=== PATIENT | male | born 1990 | race Two or more races ===

== ENCOUNTER 2021-09-20 07:42 | Emergency (ER) | payer SELFPAY ==
[~2021-09-20] VITALS: Ht 175.3 cm; Wt 97.5 kg
[2021-09-20] MEDS ORDERED: SODIUM CHLORIDE 0.9% 1,000 ML IV ONE (08:00)
[2021-09-20] MEDS ORDERED: KETOROLAC TROMETH 30 MG/ML 1ML VIAL IV ONE (08:15)
[2021-09-20 09:06] LABS: Basophils # (auto) 0 10 ^3/uL (0-0.2); Basophils % (auto) 0.3 % (0.0-2.0); Eosinophils # (auto) 0.2 10 ^3/uL (0-0.8); Eosinophils % (auto) 1.9 % (0.0-7.0); Hematocrit 43.8 % (41.0-53.0); Hemoglobin 14.9 g/dL (13.5-17.5); Lymphocytes # (auto) 1.5 10 ^3/uL (0.4-5.4); Lymphocytes % (auto) 16.2 % (10.0-50.0); Mean Corpuscular Hemoglobin 27.7 pg (28.0-32.0); Mean Corpuscular Volume 81.3 fL (80.0-100.0); Monocytes # (auto) 0.5 10 ^3/uL (0-1.3); Monocytes % (auto) 5.8 % (0.0-12.0); Neutrophils # (auto) 6.8 10 ^3/uL (1.6-8.6); Neutrophils % (auto) 75.8 % (37.0-80.0); Red Blood Cells 5.39 10^6/uL (4.5-5.90); Red Cell Distribution Width 12.8 % (11.8-14.3)
[2021-09-20 09:23] LABS: Albumin 3.9 g/dL (3.4-5.0); Calcium 8.3 mg/dL (8.5-10.1); Potassium 3.4 mmol/L (3.5-5.1)
[2021-09-20 09:28] LABS: BUN/Creatinine Ratio 14.3; Bilirubin, Total 0.8 mg/dL (0.2-1.0); Total Protein 7.4 g/dL (6.4-8.2)
[2021-09-20] MEDS ORDERED: FUROSEMIDE 20 MG/2 ML VIAL IV ONE (10:15)
[2021-09-20] MEDS ORDERED: TAMSULOSIN HYDROCHLORIDE 0.4 MG CAP PO ONE (10:15)
[2021-09-20 12:12] VITALS: BP 150/94
== END 2021-09-20 13:24 | disposition home or self-care (01) ==
LOC: ER 07:42
DX: N20.0 Calculus of kidney (principal)
CPT/HCPCS: 36415; 74176; 80053; 85025; 96361; 96374; 96375; 99284; J1885; J1940; J7030

== ENCOUNTER 2025-03-19 15:18 | Emergency (ER) | payer MEDICAID ==
[2025-03-19 15:22] VITALS: TEMP 99.1
[2025-03-19] MEDS ORDERED: DexAMETHasone SOD PHOS 10MG/1ML VIAL INJ IM ONE (15:30)
[2025-03-19] MEDS ORDERED: diphenhdrAMINE HCL 25 MG CAP PO ONE (15:30)
[2025-03-19] MEDS: DexAMETHasone SOD PHOS 10MG/1ML VIAL INJ IV ONE (15:41)
[2025-03-19] MEDS: diphenhdrAMINE HCL 50 MG/1 ML VL IV ONE (15:41)
[2025-03-19 15:45] VITALS: PULSE 82; RESP 21; O2SAT 99
--- NOTE | 2025-03-19 16:42 | ED.PDOC ---
History of Present Illness HPI Comments 34-year-old male presents to the ER with no prior medical history associated to the chief complaint of facial swelling. Patient reports waiting a pimple cream on his face 1 hour prior to arrival to the ER and had a rise of the left lower lid swelling. Denies chills, fever, N/V/D, SOB, CP. No other associated symptoms, modifiers, recent injuries or sick contacts present at this time. Patient has a history of anxiety and is anxious at time of evaluation. Chief Complaint: Allergic Reaction Time Seen by MD: 16:10 Primary Care Provider: UNKNOWN Reviewed Notes: Nurses Notes, Medications, Allergies Allergies: Coded Allergies: NO KNOWN ALLERGIES (Unverified , 09/20/21) Information Source: Patient Mode of Arrival: Ambulatory Severity: Moderate Timing: Minutes Duration: Since onset, Minutes Prehospital treatment: None Past Medical History PAST MEDICAL HISTORY: Denies Surgical History: Denies all surgeries Family History Family History: Reviewed,noncontributory to illness, Unknown Social History Smoker: Non-Smoker Alcohol: Denies ETOH Use Drugs: Denies Drug Use Lives In: Home Constitutional: reports: others (Facial swelling); denies: chills, diaphoresis, fatigue, fever, malaise, sweats, weakness EENTM: denies: blurred vision, double vision, ear bleeding, ear discharge, ear drainage, ear pain, ear ringing, eye pain, eye redness, hearing loss, mouth pain, mouth swelling, nasal discharge, nose bleeding, nose congestion, nose pain, photophobia, tearing, throat pain, throat swelling, voice changes, others Respiratory: denies: cough, hemoptysis, orthopnea, SOB at rest, shortness of breath, SOB with excertion, stridor, wheezing, others Cardiovascular: denies: chest pain, dizzy spells, diaphoresis, Dyspnea on exertion, edema, irregular heart beat, left arm pain, lightheadedness, palpitations, PND, syncope, others Gastrointestinal: denies: abdomen distended, abdominal pain, blood streaked bowels, constipated, diarrhea, dysphagia, difficulty swallowing, hematemesis, melena, nausea, poor appetite, poor fluid intake, rectal bleeding, rectal pain, vomiting, others Genitourinary: denies: burning, dysuria, flank pain, frequency, hematuria, incontinence, penile discharge, penile sore, pain, testicle pain, testicle swelling, urgency, others Neurological: denies: dizziness, fainting, headache, left sided numbness, left sided weakness, numbness, paresthesia, pre-existing deficit, right sided numbness, right sided weakness, seizure, speech problems, tingling, tremors, weakness, others Musculoskeletal: denies: back pain, gout, joint pain, joint swelling, muscle pain, muscle stiffness, neck pain, others Integumetry: denies: bruises, change in color, change in hair/nails, dryness, laceration, lesions, lumps, rash, wounds, others Allergic/Immunocompromised: denies: Difficulty Healing, Frequent Infections, Hives, Itching, others Hematologic/Lymphatic: denies: anemia, blood clots, easy bleeding, easy bruising, swollen glands, others Endocrine: denies: excessive hunger, excessive sweating, excessive thirst, excessive urination, flushing, intolerance to cold, intolerance to heat, unexplained weight gain, unexplained weight loss, others Psychiatric: denies: anxiety, bipolar disorder, depression, hopeless, panic disorder, schizophrenia, sleepless, suicidal, others All Other Systems: Reviewed and Negative Physical Exam General Appearance: Moderate Distress ([id number] distress due to swelling and anxiety related concerns.), Normal HEENT: Pharynx Normal, TMs Normal, Other (Patient reveals some left lower lid swelling extending over the bridge of the nose and very mild right lower lid swelling. No airway involvement. No angioedema noted. Oxygen saturation is 100%.) Neck: Full Range of Motion, Non-Tender, Normal, Normal Inspection Respiratory: Chest Non-Tender, Lungs Clear, No Accessory Muscle Use, No Respiratory Distress, Normal Breath Sounds Cardiovascular: No Edema, No JVD, No Murmur, No Gallop, Normal Peripheral Pulses, Regular Rate/Rhythm Breast Exam: Deferred Gastrointestinal: No Organomegaly, Non Tender, No Pulsatile Mass, Normal Bowel Sounds, Soft Genitalia: Deferred Pelvic: Deferred Rectal: Deferred Extremities: No calf tenderness, Normal capillary refill, Normal inspection, Normal range of motion, Non-tender, No pedal edema Musculoskeletal : Apperance: Normal Neurologic: Alert, No Motor Deficits, Normal Affect, Normal Mood, No Sensory Deficits Cerebellar Function: Normal Reflexes: Normal Skin: Dry, Normal Color, Warm Lymphatic: No Adenopathy Was a procedure done? Was a procedure done?: No Differential Dx Considerations may include: Contact dermatitis, allergic reactions, allergic reaction to medication X-Ray, Labs, Meds, VS Vital Signs Date Time Temp Pulse Resp B/P (MAP) Pulse Ox O2 Delivery O2 Flow Rate FiO2 03/19/25 18:00 70 17 134/99 (111) 97 03/19/25 15:45 82 21 168/108 (128) 99 03/19/25 15:45 82 21 99 Room Air* 0 21 03/19/25 15:22 16 99 Room Air* 0 21 03/19/25 15:22 99.1 97 16 166/106 (126) 99 99.1 Current Medications Medications (Trade) Dose Ordered Sig/Khari Route Start Time Stop Time Status Last Admin Diphenhydramine HCl (Benadryl Injection) 50 mg ONCE ONCE IV 03/19/25 15:45 03/19/25 15:46 DC 03/19/25 15:41 Dexamethasone Sodium Phosphate (Decadron Injection) 10 mg ONCE ONCE IV 03/19/25 15:45 03/19/25 15:46 DC 03/19/25 15:41 Lorazepam (Ativan Inj) 0.5 mg ONCE ONCE IV 03/19/25 16:30 03/19/25 16:31 DC 03/19/25 16:55 X-Ray, Labs, Meds, VS Comment Patient responded well to medication dispensed to the ED. advised patient to cease utilizing that medication moving forward and evaluate the components that medication for possible future concerns. Additionally, patient had some blood pressure issues while at the facility. Advised patient follow up with his primary care provider for discussions related to possible hypertensive concerns. Time of 1ST Reevaluation: 18:44 Reevaluation 1ST: Improved Consultation: PCP Patient Education/Counseling: Diagnosis, Treatment, Prognosis Family Education/Counseling: Diagnosis, Treatment, No Family Present Departure 1 Departure Time of Disposition: 18:45 Impression: Primary Impression: Allergic reaction caused by a drug Disposition: 01 HOME / SELF CARE / HOMELESS Condition: Stable Additional Instructions: Advise utilizing medication as needed. Patient should follow up with primary care provider for discussions related to possible blood pressure concerns. e-Prescriptions Diphenhydramine Hcl (Benadryl Allergy) 25 Mg Cap 1 CAP PO Q8HP PRN, #20 CAP 0 Refills Prov: SHWETA COTTO PAC 03/19/25 Discharged With: Self, Spouse Critical Care Note Critical Care Time?: No Stability Stability form required: No Heart Score Heart Score: Heart Score Response (Comments) Value History N/A 0 EKG N/A 0 Age N/A 0 Risk Factors N/A 0 Troponin N/A 0 Total 0 I personally scribed for SHWETA COTTO PAC ([email or web address]) on 03/19/25 at 16:42. Electronically submitted by Naif Fontenot (MODE). SHWETA COTTO PAC Mar 19, 2025 16:42
[2025-03-19] MEDS: LORazepam 2MG/ML-1ML VIAL IV ONE (16:55)
[2025-03-19 18:00] VITALS: BP 134/99; PULSE 70; RESP 17; O2SAT 97
[2025-03-19] MEDS ORDERED: DIPH25CA66 PO (18:46)
== END 2025-03-19 19:04 | disposition home or self-care (01) ==
LOC: ER 15:18
DX: R22.0 Localized swelling, mass and lump, head (principal); T50.995A Adverse effect of other drugs, medicaments and biological substances, initial encounter; Y92.89 Other specified places as the place of occurrence of the external cause
CPT/HCPCS: 96374; 96375; 99284; J1100; J1200; J2060

== ENCOUNTER 2025-05-16 22:11 | Inpatient (IN) | payer MEDICAID ==
[~2025-05-16] VITALS: Ht 177.8 cm; Wt 106.1 kg
[~2025-05-16 22:11] MED LIST: DIPH25CA66 PO
[2025-05-16] MEDS: methylPREDNISolone SOD SUCC 125 MG/2 ML VL IV ONE (22:32)
[2025-05-16] MEDS: FAMOTIDINE (10MG/ML) 2ML VL IV ONE (22:32)
[2025-05-16] MEDS: SODIUM CHLORIDE 0.9% 1,000 ML IV ONE (23:39)
[2025-05-17] VITALS (7 sets, daily range): BP systolic 131–146; BP diastolic 86–93; PULSE 61–84; RESP 16–18; TEMP 97.6–98; O2SAT 97–99
[2025-05-17] MEDS: diphenhdrAMINE HCL 50 MG/1 ML VL IV ONE (00:39)
--- NOTE | 2025-05-17 03:52 | ED.PDOC ---
HPI Allergic reaction HPI Comments Patient brought in by . Patient started having swelling around both eyes. Patient states he was cleaning a pool when he has the leaf blower and believes that some of the clothing dosed may have gotten into his eyes. Patient also states he did have some prior to cleaning the pool. States no prior allergy to shrimp. Says he has been dealing with allergic type reactions over the last week, he believes it was due to the pull chemicals. Patient denies any trouble reading, but states he does feel a tingling sensation in his throat and tongue. Patient unable to open his eyes due to swelling. Patient was given 50 mg of Benadryl 30 minutes prior to arrival. Chief Complaint: Allergic Reaction Time Seen by MD: 22:25 Primary Care Provider: UNKNOWN Reviewed Notes: Nurses Notes Allergies: Coded Allergies: NO KNOWN ALLERGIES (Unverified , 09/20/21) Home Meds Active Scripts Diphenhydramine Hcl (Benadryl Allergy) 25 Mg Cap, 1 CAP PO Q8HP PRN, #20 CAP 0 Refills Prov:SHWETA COTTO Min PAC 03/19/25 Information Source: Patient Mode of Arrival: Ambulatory Severity: Mild, Severe Past Medical History PAST MEDICAL HISTORY: Denies Surgical History: Denies all surgeries Family History Family History: Reviewed,noncontributory to illness, Unknown Social History Smoker: Non-Smoker Alcohol: Denies ETOH Use Drugs: Denies Drug Use Lives In: Home Constitutional: denies: chills, diaphoresis, fatigue, fever, malaise, sweats, weakness, others EENTM: reports: others (I swelling); denies: blurred vision, double vision, ear bleeding, ear discharge, ear drainage, ear pain, ear ringing, eye pain, eye redness, hearing loss, mouth pain, mouth swelling, nasal discharge, nose bleeding, nose congestion, nose pain, photophobia, tearing, throat pain, throat swelling, voice changes Respiratory: denies: cough, hemoptysis, orthopnea, SOB at rest, shortness of breath, SOB with excertion, stridor, wheezing, others Cardiovascular: denies: chest pain, dizzy spells, diaphoresis, Dyspnea on exertion, edema, irregular heart beat, left arm pain, lightheadedness, palpitations, PND, syncope, others Gastrointestinal: denies: abdomen distended, abdominal pain, blood streaked bowels, constipated, diarrhea, dysphagia, difficulty swallowing, hematemesis, melena, nausea, poor appetite, poor fluid intake, rectal bleeding, rectal pain, vomiting, others Genitourinary: denies: burning, dysuria, flank pain, frequency, hematuria, incontinence, penile discharge, penile sore, pain, testicle pain, testicle swelling, urgency, others Neurological: denies: dizziness, fainting, headache, left sided numbness, left sided weakness, numbness, paresthesia, pre-existing deficit, right sided numbness, right sided weakness, seizure, speech problems, tingling, tremors, weakness, others Musculoskeletal: denies: back pain, gout, joint pain, joint swelling, muscle pain, muscle stiffness, neck pain, others Integumetry: denies: bruises, change in color, change in hair/nails, dryness, laceration, lesions, lumps, rash, wounds, others Allergic/Immunocompromised: denies: Difficulty Healing, Frequent Infections, Hives, Itching, others Physical Exam General Appearance: Normal, Severe Distress HEENT: Normal ENT Inspection, Pharynx Normal, TMs Normal, Other (Angioedema to bilateral eyes) Neck: Full Range of Motion, Non-Tender, Normal, Normal Inspection Respiratory: Chest Non-Tender, Lungs Clear, No Accessory Muscle Use, No Respiratory Distress, Normal Breath Sounds Cardiovascular: No Edema, No JVD, No Murmur, No Gallop, Normal Peripheral Pulses, Regular Rate/Rhythm Breast Exam: Deferred Gastrointestinal: No Organomegaly, Non Tender, No Pulsatile Mass, Normal Bowel Sounds, Soft Genitalia: Deferred Pelvic: Deferred Rectal: Deferred Extremities: No calf tenderness, Normal capillary refill, Normal inspection, Normal range of motion, Non-tender, No pedal edema Musculoskeletal : Apperance: Normal Neurologic: Alert, section chief II-XII nml as Tested, No Motor Deficits, Normal Affect, Normal Mood, No Sensory Deficits Cerebellar Function: Normal Reflexes: Normal Skin: Dry, Normal Color, Warm Lymphatic: No Adenopathy Was a procedure done? Was a procedure done?: No Differential diagnosis (all) Differential Diagnosis: Anaphylaxis, Angioedema, Drug Reaction, Hypotension X-Ray, Labs, Meds, VS Vital Signs Date Time Temp Pulse Resp B/P (MAP) Pulse Ox O2 Delivery O2 Flow Rate FiO2 05/17/25 01:40 98.3 70 17 124/73 (90) 96 98.3 05/17/25 01:30 61 16 97 Room Air* 0 21 21 05/16/25 23:35 57 15 100/52 (68) 100 05/16/25 22:37 107 20 100 Room Air 05/16/25 22:23 98.5 107 20 170/92 100 98.5 Current Medications Medications (Trade) Dose Ordered Sig/Khari Route Start Time Stop Time Status Last Admin Epinephrine HCl 0.3 mg ONCE ONCE IM 05/16/25 22:30 05/16/25 22:31 DC 05/16/25 22:33 Methylprednisolone Sodium Succinate (Solu Medrol) 125 mg ONCE ONCE IV 05/16/25 22:30 05/16/25 22:31 DC 05/16/25 22:32 Famotidine (Pepcid Injection) 20 mg ONCE ONCE IV 05/16/25 22:30 05/16/25 22:31 DC 05/16/25 22:32 Sodium Chloride 1,000 ml @ 1,000 mls/hr Q1H ONCE IV 05/16/25 23:45 05/17/25 00:44 DC 05/16/25 23:39 Diphenhydramine HCl (Benadryl Injection) 50 mg ONCE ONCE IV 05/17/25 00:45 05/17/25 00:46 DC 05/17/25 00:39 X-Ray, Labs, Meds, VS Comment Patient is having a mild improvement from medications. Still having bilateral angioedema. Patient will be admitted for observation and continue treatments. Patient currently hemodynamically stable Time of 1ST Reevaluation: 03:51 Reevaluation 1ST: Improved Patient Education/Counseling: Diagnosis, Treatment Family Education/Counseling: Diagnosis SEPSIS Sepsis Screen Date sepsis recognized/suspect: May 17, 2025 Time Sepsis recognized/suspect: 0140 Recent Procedure: No On Antibiotic Therapy: No Respiratory Rate >20: No Heart Rate >90: No Temp<36 C (96.8 F) or >38.3 C: No SBP <90 or MAP <65 mmHG: No New Acute Mental Status Change: No Is the patient on CPAP, BIPAP,: No Vital Signs Date Time Temp Pulse Resp B/P (MAP) Pulse Ox O2 Delivery O2 Flow Rate FiO2 05/17/25 01:40 98.3 70 17 124/73 (90) 96 98.3 05/17/25 01:30 61 16 97 Room Air* 0 21 21 05/16/25 23:35 57 15 100/52 (68) 100 05/16/25 22:37 107 20 100 Room Air 05/16/25 22:23 98.5 107 20 170/92 100 98.5 Medications Medications Dose Ordered Sig/Khari Route Start Time Stop Time Status Last Admin Dose Admin Diphenhydramine HCl 50 mg ONCE ONCE IV 05/17/25 00:45 05/17/25 00:46 DC 05/17/25 00:39 Epinephrine HCl 0.3 mg ONCE ONCE IM 05/16/25 22:30 05/16/25 22:31 DC 05/16/25 22:33 Famotidine 20 mg ONCE ONCE IV 05/16/25 22:30 05/16/25 22:31 DC 05/16/25 22:32 Methylprednisolone Sodium Succinate 125 mg ONCE ONCE IV 05/16/25 22:30 05/16/25 22:31 DC 05/16/25 22:32 Sodium Chloride 1,000 ml @ 1,000 mls/hr Q1H ONCE IV 05/16/25 23:45 05/17/25 00:44 DC 05/16/25 23:39 Departure 1 Departure Time of Disposition: 03:50 Impression: Primary Impression: Angioedema Qualified Codes: T78.3XXA - Angioneurotic edema, initial encounter Disposition: HOME / SELF CARE / HOMELESS Condition: Stable Discharged With: Self Critical Care Note Critical Care Time?: No Stability Stability form required: No Heart Score Heart Score: Heart Score Response (Comments) Value History N/A 0 EKG N/A 0 Age N/A 0 Risk Factors N/A 0 Troponin N/A 0 Total 0 TDOD GARCIA TUBE WASHER May 17, 2025 03:52
[2025-05-17] MEDS: SODIUM CHLORIDE 0.9% 1,000 ML IV ONE (05:15)
--- NOTE | 2025-05-17 05:23 | DVH ---
CHEST RADIOGRAPH Indication: Allergic reaction Technique: Single frontal view of the chest was obtained COMPARISON: None FINDINGS: Lines and Tubes: None Lungs: Clear Pleura: No effusion. No pneumothorax. Cardiomediastinal contours: Unremarkable Bones: Unremarkable IMPRESSION: No acute disease.
--- NOTE | 2025-05-17 05:46 | DVHHPRES ---
History of Present Illness Resident Creating Document: YANELIS AGUILA RESIDENT History of Present Illness Rodolfo Erickson is a 34-year-old male, with past medical history of hypertension, migraine and skin cancer. The patient visit the ED with a chief complain of 1 day of progressive bilateral eye swelling that started suddenly after contact with pool chemicals, associated with itchiness, lacrimation and conjunctiva hyperemia. The patient reports this is the 5th episode of this type of allergic reaction, he was admitted for the same complaint a month ago, he will see the secondary history teacher at the end of the month. Today, the swelling progress to the point he was not able to open the eyes and present shortness of breath and difficulty to swallow, this prompt his visit to the ED. Patient was given 50 mg of Benadryl 30 minutes prior to arrival. The patient denies any new medications, new food, sick contacts or travels. Cardiovascular: HTN PROPERTY DAMAGE CLAIMS ADJUSTOR: Migraine Dermatology: Other (Skin cancer) Past Surgical History: Other (skin cancer resection on right side of the face. ) Family History: None Smoke: No ALCOHOL: occassional Drugs: Marijuana (He report last usage was 2 weeks ago.) Lives: with Family Review of Systems Constitutional: No: Fever, Chills, Sweats, Weakness, Malaise, Other Eyes: Eyelid inflammation, Redness (Uper and lower eyelid swelling, patient unable to open de eyes. ); No: Pain, Vision change, Conjunctivae inflammation, Other ENT: Throat swelling; No: Ear pain, Ear discharge, Nose pain, Nose discharge, Nose congestion, Mouth pain, Mouth swelling, Throat pain, Other Respiratory: Shortness of breath; No: Cough, Dry, SOB with excertion, Wheezing, Hemoptysis, Pleuritic Pain, Sputum, Wheezing, Other Cardiovascular: No: Chest Pain, Palpitations, Orthopnea, Paroxysmal Noc. Dyspnea, Edema, Lt Headedness, Other Gastrointestinal: No: Nausea, Vomiting, Abdominal Pain, Diarrhea, Constipation, Melena, Hematochezia, Other Genitourinary: No Dysuria, No Frequency, No Incontinence, No Hematuria, No Retention, No Other Musculoskeletal: No: other, neck pain, shoulder pain, arm pain, back pain, hand pain, leg pain, foot pain Skin: No: Rash, Lesions, Jaundice, Bruising, Other Neurological: No: Weakness, Numbness, Incoordination, Change in speech, Confusion, Seizures, Other Allergies: Coded Allergies: NO KNOWN ALLERGIES (Unverified , 09/20/21) Exam Vital Signs Vital Signs Date Time Temp Pulse Resp B/P (MAP) Pulse Ox O2 Delivery O2 Flow Rate FiO2 05/17/25 04:00 71 14 110/75 (87) 97 05/17/25 01:40 98.3 98.3 05/17/25 01:30 Room Air* 0 21 21 HEENT: Other (Uper and lower eyelid swelling, patient unable to open de eyes. ) Respiratory: Clear to auscultation, Normal air movement Cardiovascular: Normal S1, Normal S2, No murmurs Abdominal: Normal bowel sounds, Soft, No tenderness, No hepatospenomegaly, No masses Extremities: No clubbing, No cyanosis, No edema, Normal pulses, No tenderness/swelling Skin: No rashes, No breakdown, No significant lesion Neuro: Normal gait, Normal speech, Strength at 5/5 X4 ext, Sensation intact, Cranial nerves 3-12 NL Psych/Mental Status: Mental status NL, Mood NL SEPSIS Sepsis Screen Date sepsis recognized/suspect: May 17, 2025 Time Sepsis recognized/suspect: 014 Recent Procedure: No On Antibiotic Therapy: No Respiratory Rate >20: No Heart Rate >90: No Temp<36 C (96.8 F) or >38.3 C: No SBP <90 or MAP <65 mmHG: No New Acute Mental Status Change: No Is the patient on CPAP, BIPAP,: No Physician Orders Admit (05/17/25 04:51) Code Status (05/17/25 04:51) Vital Signs .PER UNIT PROTOCOL (05/17/25 04:51) Review Orders With Adm.Md (05/17/25 04:51) Notify Md Of Changes From Base (05/17/25 04:51) Advance Directive (05/17/25 04:51) Patient Condition (05/17/25 04:51) Allergies (05/17/25 04:51) Notify Md Of Changes From Base (05/17/25 04:51) Drug Screen (05/17/25 04:51) Urinalysis (05/17/25 04:51) Complete Blood Count (05/17/25 04:51) Comprehensive Metabolic Panel (05/17/25 04:51) Chest Xray 1 View (05/17/25 04:51) Vital Signs Date Time Temp Pulse Resp B/P (MAP) Pulse Ox O2 Delivery O2 Flow Rate FiO2 05/17/25 04:00 71 14 110/75 (87) 97 05/17/25 01:40 98.3 70 17 124/73 (90) 96 98.3 05/17/25 01:30 61 16 97 Room Air* 0 21 21 05/16/25 23:35 57 15 100/52 (68) 100 05/16/25 22:37 107 20 100 Room Air 05/16/25 22:23 98.5 107 20 170/92 100 98.5 Medications Medications Dose Ordered Sig/Khari Route Start Time Stop Time Status Last Admin Dose Admin Diphenhydramine HCl 50 mg ONCE ONCE IV 05/17/25 00:45 05/17/25 00:46 DC 05/17/25 00:39 50 MG Epinephrine HCl 0.3 mg ONCE ONCE IM 05/16/25 22:30 05/16/25 22:31 DC 05/16/25 22:33 0.3 MG Famotidine 20 mg ONCE ONCE IV 05/16/25 22:30 05/16/25 22:31 DC 05/16/25 22:32 20 MG Methylprednisolone Sodium Succinate 125 mg ONCE ONCE IV 05/16/25 22:30 05/16/25 22:31 DC 05/16/25 22:32 125 MG Sodium Chloride 1,000 ml @ 1,000 mls/hr Q1H ONCE IV 05/16/25 23:45 05/17/25 00:44 DC 05/16/25 23:39 1,000 MLS/HR Assessment/Plan Assessment/Plan #Allergic reaction #Angioedema Epinephrin 0.3mg IM Methylprednisolone 125mg IV Diphenhydramine 50mg IV IV fluids NS 75cc/hr #Essential Hypertension Amlodipine 10mg po (on hold due to low BP) #Migraine Excedrin po prn migraines #Obesity Life style modifications counselling. #Substance abuse, Marihuana use. Life style modifications counselling. Mechanical soft diet DVT prophylaxis- ambulating. PUD prophylaxis famotidine Goals of care discussed with the patient > 35 min. Discussed plan of care with Dr. Sahu Code status: Full code PCP: Does not recall name. Plan discussed with: Patient, the patient agrees with the admission plan. Plan discussed with: Patient, Spouse My Orders Orders - YANELIS AGUILA Procedure Category Date Status Time Admit ADMIT 05/17/25 Transmitted 04:51 Code Status CODE 05/17/25 Transmitted 04:51 Vital Signs [facility] 05/17/25 In Process 04:51 Review Orders With [facility] 05/17/25 In Process Adm.Md 04:51 Notify Md Of Changes [facility] 05/17/25 In Process From Base 04:51 Advance Directive [facility] 05/17/25 In Process 04:51 Patient Condition ORDERS 05/17/25 Transmitted 04:51 Allergies [facility] 05/17/25 In Process 04:51 Notify Md Of Changes [facility] 05/17/25 In Process From Base 04:51 Drug Screen LAB 05/17/25 Logged 04:51 Urinalysis LAB 05/17/25 Logged 04:51 Complete Blood Count LAB 05/17/25 Logged 04:51 Comprehensive LAB 05/17/25 Logged Metabolic Panel 04:51 Chest Xray 1 View XY 05/17/25 Taken 04:51 Date of Service: May 17, 2025 Billing Provider: MITRA SAHU MD Common Visit Codes: [id number] INP/OBS CARE (HIGH) Secondary Visit Codes: [id number] CARE PLAN 30 MINUTES YANELIS AGUILA May 17, 2025 05:46
[2025-05-17 05:53] LABS: Hematocrit 45.8 % (41.0-53.0); Hemoglobin 15.8 g/dL (13.5-17.5); Mean Corpuscular Hemoglobin 27.8 pg (28.0-32.0); Mean Corpuscular Volume 80.8 fL (80.0-100.0); Nucleated Red Blood Cells % 0.0 %
[2025-05-17] MEDS: diphenhdrAMINE HCL 25 MG CAP PO SCH (06:00)
[2025-05-17 06:06] LABS: Alanine Aminotransferase 27 U/L (7-40); Alkaline Phosphatase 77 U/L (46-116); Anion Gap 10 (5-15); BUN/Creatinine Ratio 11.1 (10.0-20.0); Blood Urea Nitrogen 10 mg/dL (9-23); Calcium 8.8 mg/dL (8.7-10.4); Carbon Dioxide 24 mmol/L (20-31); Chloride 105 mmol/L (98-107); Potassium 4.4 mmol/L (3.5-5.1); Sodium 139 mmol/L (136-145); Total Protein 6.8 g/dL (5.7-8.2)
[2025-05-17 06:07] LABS: Albumin 4.5 g/dL (3.2-4.8); Bilirubin, Total 0.7 mg/dL (0.2-1.0)
[2025-05-17 06:08] LABS: Glucose 146 mg/dL (74-106)
[2025-05-17] MEDS: SODIUM CHLORIDE 0.9% 1,000 ML IV SCH (08:45)
[2025-05-17] MEDS: FAMOTIDINE (10MG/ML) 2ML VL IV SCH (10:21)
[2025-05-17] MEDS: methylPREDNISolone SOD SUCC 40 MG/ML VL IV SCH (10:22)
[2025-05-17] MEDS ORDERED: AMLO1TAB22 PO (15:36)
--- NOTE | 2025-05-17 15:52 | DVHPNRES ---
Progress Note Date Seen: May 17, 2025 Resident Creating Document: XIOMARA LOPEZ RESIDENT Medical Necessity Reason Pt with a Central, PICC or Fol: No Subjective Review of Systems Patient is a 34-year-old male with prior medical history of hypertension and skin cancer, who presented to the ED with chief complaint of eye swelling and shortness of breath. Patient states that he was in his yard using a leaf blower when he states he felt itching in both eyes. Patient went back inside his hands over his eyes, and states he had sudden onset of bilateral eye swelling, associated with hand swelling and itching, and swelling of his throat associated with shortness of breath. He states that since April, he has had 4 episodes similar to this with no triggers, 2 of which required emergency room visits. however he states this is the first associated with a sensation of swelling no shortness a breath, which prompted him to seek medical attention. On evaluation in the ED, patient was in distress and tachycardic. Initial labs showed CBC and chemical panel within normal range. Chest xray show no acute disease. He was given one dose of epinephrine IM and IV methylprednisolone, and was admitted for further work up and monitoring. Allergic: States he does not know what he is allergic to Surgical: Status post skin resection Social: refers occasional marijuana use, denies tobacco use, denies alcohol use, states he lives with his and family and he feels safe Patient seen at bedside. Patient states that he feels better, eye swelling has improved, and shortness of breath has resolved. he denies fever, cough, history asthma, history of atopy, diarrhea, hives, palpitations, and chest pain. No adverse events over night. Vitals have remained stable. Follow up labs are within normal range. We will continue IV methylprednisolone, Benadryl, and famotidine. We will continue to monitor. Review of Systems: Constitutional: Denies weight loss, fever and chills. HEENT: Refers bilateral eye swelling, Denies changes in vision and hearing. Respiratory: Denies shortness of breath and cough Cardiovascular: Denies chest discomfort or palpitations GI: Denies abdominal distention, abdominal pain, diarrhea : Denies dysuria and urinary frequency. Musculoskeletal: denies symptoms Skin: Denies rash and pruritus. Neurological: denies dizziness headache vision or hearing problems Objective vital signs Vital Sign Date Time Temp Pulse Resp B/P (MAP) Pulse Ox O2 Delivery O2 Flow Rate FiO2 05/17/25 14:44 98.0 76 18 131/86 (101) 98 98.0 05/17/25 14:44 Room Air* 0 21 medications Current Medications Medications Dose Ordered Sig/Khari Route Start Time Stop Time Status Last Admin Dose Admin Diphenhydramine HCl 50 mg Q6HP PO 05/17/25 06:00 05/17/25 12:09 50 MG Famotidine 20 mg DAILY IV 05/17/25 10:00 05/17/25 10:21 20 MG Methylprednisolone Sodium Succinate 40 mg BID IV 05/17/25 10:00 05/17/25 10:22 40 MG Sodium Chloride 1,000 ml @ 125 mls/hr Q8H IV 05/17/25 08:45 05/17/25 08:45 125 MLS/HR Pantoprazole Sodium 40 mg DAILY IV 05/18/25 10:00 UNV Examination General: The patient alert and oriented in person place and time. Patient following commands HEENT: Normocephalic, atraumatic, bilateral eyelid swelling more pronounced on the right than the left, right eyelashes with the presence of clear liquid, pupils are unable to be evaluated, pink conjunctiva, pink moist mucous membrane Respiratory/pulmonary: bilateral chest expansion, clear lungs bilaterally, vesicular murmurs present in almost all lung ellington, no associated crackles or wheezes. Cardiovascular: Normal RRR, normal S1 and S2 Abdomen: Obese, Abdomen nondistended, normal bowel sounds, soft, no pain to palpation in any of the abdominal quadrants, no palpable masses. Extremities: no deformities or swelling, there is no peripheral edema present at the lower extremities. Peripheral pulses 3+ radial right, 3+ radials soft. 3+ dorsalis pedis right. 3+ dorsalis pedis left Skin: No rashes or pruritus Neurological: Intact cranial nerves with no focal neurologic deficits laboratory and microbiology Laboratory Tests 05/17/25 05:20 Test 05/17/25 05:20 Range/Units Serum Glucose 146 H 74-106 mg/dL Problem List/Assessment/Plan Problem List/Assessment/Plan Assessment and plan: Angioedema secondary to allergic reaction - Solu Medrol 40 mg IV b.i.d. - famotidine 20 mg IV daily - Benadryl 50 mg p.o. q.6 hours - IV fluids Hypertension - amlodipine 5 mg p.o. daily Morbid Obesity, BMI 36.4 kg/m2 Marijuana use - Patient has been counseled on the importance of cessation for over 25 minutes. History of skin cancer - status post resection in 2023 DVT prophylaxis: Not indicated, TASHIA 0 GI prophylaxis: Protonix 40 mg IV, daily Case discussed with Dr. Joseph Goals of care discussed with the patient for voer 35 minutes, states he understands and agree. Plan discussed with: Patient My Orders My Orders Orders - XIOMARA LOPEZ Procedure Category Date Status Time Pantoprazole PHA 05/17/25 Logged (Protonix) 16:00 Pantoprazole PHA 05/18/25 Logged (Protonix) 10:00 Date of Service: May 17, 2025 Billing Provider: DELROY JOSEPH MD Common Visit Codes: 79086-LTAGELD INP/OBS CARE (HIGH) Secondary Visit Codes: 51280-RUSTFRWQ CARE PLAN 30 MINUTES XIOMARA LOPEZ RESIDENT May 17, 2025 15:52 DELROY JOSEPH MD May 21, 2025 20:43
[2025-05-17] MEDS: PANTOPRAZOLE 40 MG/10 ML VIAL INJ IV ONE (17:18)
[2025-05-17 19:32] LABS: Cannabinoid Screen, Urine Neg (NEGATIVE)
[2025-05-17 19:33] LABS: Amphetamine Screen, Urine Pos (NEGATIVE); Barbiturate Scree,Urine Neg (NEGATIVE); Benzodiazephine Screen, Urine Neg (NEGATIVE); Cocaine Screen, Urine Neg (NEGATIVE); Opiate Scree,Urine Neg (NEGATIVE); Phencyclidine Screen, Urine Neg (NEGATIVE)
[2025-05-17 19:36] LABS: Urine Protein, UAD Negative (Negative)
[2025-05-18 01:00] VITALS: BP 116/72; PULSE 63; RESP 17; TEMP 97.7; O2SAT 98
[2025-05-18 05:00] VITALS: BP 126/85; PULSE 67; RESP 18; TEMP 97.8; O2SAT 100
[2025-05-18 07:23] LABS: Chloride 105 mmol/L (98-107); Potassium 3.9 mmol/L (3.5-5.1); Sodium 141 mmol/L (136-145)
[2025-05-18 07:24] LABS: Anion Gap 8 (5-15); Carbon Dioxide 28 mmol/L (20-31)
[2025-05-18 07:29] LABS: Blood Urea Nitrogen 9 mg/dL (9-23); Calcium 8.6 mg/dL (8.7-10.4); Glucose 124 mg/dL (74-106)
[2025-05-18 07:30] LABS: BUN/Creatinine Ratio 10.3 (10.0-20.0)
[2025-05-18 07:32] LABS: Hematocrit 43.5 % (41.0-53.0); Hemoglobin 14.9 g/dL (13.5-17.5); Mean Corpuscular Hemoglobin 27.9 pg (28.0-32.0); Mean Corpuscular Volume 81.4 fL (80.0-100.0); Nucleated Red Blood Cells % 0.0 %
[2025-05-18 08:00] VITALS: PULSE 70; RESP 20; O2SAT 97
[2025-05-18 09:00] VITALS: BP 134/85; PULSE 70; RESP 20; TEMP 98; O2SAT 100
[2025-05-18] MEDS: PANTOPRAZOLE 40 MG/10 ML VIAL INJ IV SCH (09:52)
[2025-05-18] MEDS ORDERED: EPIN0.1I11 IJ (11:09)
[2025-05-18] MEDS ORDERED: DIPH25CA66 PO (11:09)
[2025-05-18] MEDS ORDERED: FAMO20TA10 PO (11:09)
[2025-05-18] MEDS ORDERED: METH4PAK PO (11:09)
[2025-05-18 11:48] VITALS: TEMP 36.7
--- NOTE | 2025-05-18 13:54 | DVHDSRES ---
Discharge Summary Date of Admission Resident Creating Document: XIOMARA LOPEZ RESIDENT May 17, 2025 at 04:51 Date of Discharge: May 18, 2025 Admitting Diagnosis Angioedema Labs/Diagnostic Data: Laboratory Results Test 05/18/25 06:02 05/17/25 19:08 05/17/25 05:20 White Blood Count 11.5 10^3/uL (4.4-10.8) Red Blood Count 5.35 10^6/uL (4.5-5.90) Hemoglobin 14.9 g/dL (13.5-17.5) Hematocrit 43.5 % (41.0-53.0) Mean Corpuscular Volume 81.4 fL (80.0-100.0) Mean Corpuscular Hemoglobin 27.9 pg (28.0-32.0) Mean Corpuscular Hemoglobin Concent 34.3 g/dL (32.0-36.0) Red Cell Distribution Width 13.5 % (11.8-14.3) Platelet Count 247 10^3/uL (140-450) Mean Platelet Volume 8.4 fL (6.9-10.8) Neutrophils (%) (Auto) 86.9 % (37.0-80.0) Lymphocytes (%) (Auto) 10.6 % (10.0-50.0) Monocytes (%) (Auto) 2.4 % (0.0-12.0) Eosinophils (%) (Auto) 0.0 % (0.0-7.0) Basophils (%) (Auto) 0.1 % (0.0-2.0) Neutrophils # (Auto) 10.0 10 ^3/uL (1.6-8.6) Lymphocytes # (Auto) 1.2 10 ^3/uL (0.4-5.4) Monocytes # (Auto) 0.3 10 ^3/uL (0-1.3) Eosinophils # (Auto) 0 10 ^3/uL (0-0.8) Basophils # (Auto) 0 10 ^3/uL (0-0.2) Nucleated Red Blood Cells 0.0 % Sodium Level 141 mmol/L (136-145) Potassium Level 3.9 mmol/L (3.5-5.1) Chloride Level 105 mmol/L (98-107) Carbon Dioxide Level 28 mmol/L (20-31) Anion Gap 8 (5-15) Blood Urea Nitrogen 9 mg/dL (9-23) Creatinine 0.87 mg/dL (0.700-1.30) Glomerular Filtration Rate Calc 115 mL/min (>90) BUN/Creatinine Ratio 10.3 (10.0-20.0) Serum Glucose 124 mg/dL (74-106) Hemoglobin A1c 5.3 % A1C (<5.7) Calcium Level 8.6 mg/dL (8.7-10.4) Urine Color Light-yellow (Yellow) Urine Clarity Clear (Clear) Urine pH 6.5 (5.0-9.0) Urine Specific [place] 1.012 (1.001-1.035) Urine Protein Negative (Negative) Urine Ketones Negative (Negative) Urine Blood Negative /uL (Negative) Urine Nitrite Negative (Negative) Urine Bilirubin Negative (Negative) Urine Urobilinogen Normal mg/dL (Negative) Urine Leukocyte Esterase Negative /uL (Negative) Urine RBC 1 /hpf (0 - 3) Urine Microscopic WBC < 1 /HPF (0-3) Urine Squamous Epithelial Cells None seen /hpf (<5) Urine Bacteria None seen /hpf (None Seen) Urine Glucose Normal mg/dL (Normal) Urine Opiates Screen Neg (NEGATIVE) Urine Fentanyl Screen Neg (NEGATIVE) Urine Barbiturates Screen Neg (NEGATIVE) Urine Phencyclidine Screen Neg (NEGATIVE) Urine Amphetamines Screen Pos (NEGATIVE) Urine Benzodiazepines Screen Neg (NEGATIVE) Urine Cocaine Screen Neg (NEGATIVE) Urine Cannabinoids Screen Neg (NEGATIVE) Total Bilirubin 0.7 mg/dL (0.2-1.0) Aspartate Amino Transferase (AST) 20 U/L (13-40) Alanine Aminotransferase (ALT) 27 U/L (7-40) Alkaline Phosphatase 77 U/L (46-116) Total Protein 6.8 g/dL (5.7-8.2) Albumin 4.5 g/dL (3.2-4.8) Other Laboratory Tests 05/18/25 06:02 Brief Hx & Hospital Course: Patient is a 34-year-old male with prior medical history of hypertension and skin cancer, who presented to the ED with chief complaint of eye swelling and shortness of breath. Patient states that he was in his yard using a leaf blower when he states he felt itching in both eyes. Patient went back inside his hands over his eyes, and states he had sudden onset of bilateral eye swelling, associated with hand swelling and itching, and swelling of his throat associated with shortness of breath. He states that since April, he has had 4 episodes similar to this with no triggers, 2 of which required emergency room visits. however he states this is the first associated with a sensation of swelling no shortness a breath, which prompted him to seek medical attention. On evaluation in the ED, patient was in distress and tachycardic. Initial labs showed CBC and chemical panel within normal range. Chest x-ray show no acute disease. He was given one dose of epinephrine IM and IV methylprednisolone, and was admitted for further work up and monitoring. On evaluation after admission, patient stated that shortness of breath, sensation of throat swelling, and pruritus of the hands had ceased. There was still presence of bilateral eyelid edema. He was started on IV methylprednisolone, IV famotidine, and Benadryl. Patient progressed favorably. on evaluation today, patient stated that he felt better, swelling had decreased significantly, there were no more episodes of shortness of breaths or throat swelling. He slept well, tolerated regular oral diet, and has been able to ambulate without difficulty. He is considered stable for discharge home with a Medrol dosepak, famotidine, and Benadryl, as well as Epinephrine injections for emergencies. The patient has an appointment with an digital content manager later this month for further evaluation and allergen testing. All medications and their uses have been thoroughly explained. Recommendations for avoidance of potential allergens have been thoroughly explained. The patient states that he understands and agrees. General: The patient alert and oriented in person place and time. Patient following commands HEENT: Normocephalic, atraumatic, decreased bilateral eyelid swelling more pronounced on the right than the left, pupils are unable to be evaluated, pink conjunctiva, pink moist mucous membrane Respiratory/pulmonary: bilateral chest expansion, clear lungs bilaterally, vesicular murmurs present in almost all lung ellington, no associated crackles or wheezes. Cardiovascular: Normal RRR, normal S1 and S2 Abdomen: Obese, Abdomen nondistended, normal bowel sounds, soft, no pain to palpation in any of the abdominal quadrants, no palpable masses. Extremities: no deformities or swelling, there is no peripheral edema present at the lower extremities. Peripheral pulses 3+ radial right, 3+ radials soft. 3+ dorsalis pedis right. 3+ dorsalis pedis left Skin: No rashes or pruritus Neurological: Intact cranial nerves with no focal neurologic deficits Case discussed with Dr. Joseph Goals of care discussed with the patient for over 35 minutes. States he understands and agrees. Operations or Procedures CHEST RADIOGRAPH Indication: Allergic reaction Technique: Single frontal view of the chest was obtained COMPARISON: None FINDINGS: Lines and Tubes: None Lungs: Clear Pleura: No effusion. No pneumothorax. Cardiomediastinal contours: Unremarkable Bones: Unremarkable IMPRESSION: No acute disease. Condition at Discharge: Stable Final Diagnosis/Problems List Angioedema secondary to allergic reaction Leukocytosis, secondary to steroid use Hypertension Obesity, BMI 36.4 kg/m2 Marijuana use History of skin cancer Discharge Disposition: Home Discharge Instruct/Medications Diet: Regular Activity: No Restrictions, As Tolerated Follow Up/Referral: -FOLLOW UP WITH PCP IN 1 WEEKS Medications: EPIPEN FOR EMERGENCY BENEDRYL 1 CAPSULE PO Q8HRS PRN FOR ITCHING REGULAR FAMOTIDINE 1 TABLET PO BID FOR 10 DAYS MEDROL DOSEPACK FOR 6 DAYS AMLODIPINE 5 MG PO DAILY Scheduled Amlodipine Besylate (Amlodipine Besylate), 1 TAB PO DAILY, (Reported) Famotidine (Pepcid Tablet), 1 TAB PO BID Methylprednisolone (Medrol Dosepak), 4 MG PO UD Scheduled PRN Diphenhydramine Hcl (Benadryl Allergy), 1 CAP PO Q8HP PRN Diphenhydramine Hcl (Benadryl Allergy), 1 CAP PO QPM PRN Epinephrine (Anaphylaxis) (Auvi-Q), 0.1 MG IJ O PRN Discharge Statement: "Patient was advised to return to the ER or call 911 if any headaches, dizziness, shortness of breath, chest pain, abdominal pain, bleeding, fevers, or worsening of medical condition. Patient was counseled about treatment plan, medications, possible side effects, patientverbalized understanding. All questions were answered to the best of my ability. This discharge took greater then 30 minutes in planning, reviewing documentation, counseling the patient, and discussing with other team members." ASSESSMENT ASSESSMENT Assessment Angioedema secondary to allergic reaction Date of Service: May 18, 2025 Billing Provider: DELROY JOSEPH MD Common Visit Codes: 84794-KCT/OBS DISCH DAY >30min XIOMARA LOPEZ RESIDENT May 18, 2025 13:54 DELROY JOSEPH MD May 21, 2025 20:43
== END 2025-05-18 12:32 | disposition home or self-care (01) | DRG 811 ==
LOC: ER 22:11 → OVERFLOW 05-17 04:51 → WEST WING 05-17 14:17
PROVIDERS: ADMIT Internal Medicine Geriatric Medicine; ATTEND Internal Medicine Geriatric Medicine
DX: T78.3XXA Angioneurotic edema, initial encounter (principal); E66.01 Morbid (severe) obesity due to excess calories; G43.909 Migraine, unspecified, not intractable, without status migrainosus; T38.0X5A Adverse effect of glucocorticoids and synthetic analogues, initial encounter; I10 Essential (primary) hypertension; F12.10 Cannabis abuse, uncomplicated; Z79.899 Other long term (current) drug therapy; Z85.828 Personal history of other malignant neoplasm of skin; Z68.36 Body mass index [BMI] 36.0-36.9, adult; Y92.89 Other specified places as the place of occurrence of the external cause
CPT/HCPCS: 36415; 71045; 80048; 80053; 80307; 81001; 83036; 85025; 96374; 96375; G0378; J0169; J2470; J3490

== ENCOUNTER 2025-09-12 11:07 | Emergency (ER) | payer MEDICAID ==
[~2025-09-12] VITALS: Ht 177.8 cm; Wt 102.8 kg
[~2025-09-12 11:07] MED LIST changes: +AMLO1TAB22 PO; +EPIN0.1I11 IJ; +FAMO20TA10 PO; +METH4PAK PO
[2025-09-12] MEDS ORDERED: METH4PAK PO (12:03)
--- NOTE | 2025-09-12 12:03 | ED.PDOC ---
HPI Allergic reaction HPI Comments The patient presented with recurrent allergic reactions resulting in swelling of the eyes, particularly the right eye. The patient reported experiencing recurrent swelling of the eyes, predominantly the right eye, which began earlier in the year. The patient stated that the swelling starts suddenly and is relieved by taking Benadryl, which was last taken around 11 AM on the day of the visit. The patient had previously visited an buffer chrome and undergone allergy testing, which did not reveal any major allergies. The patient was prescribed an EpiPen but did not use it as there were no symptoms of throat swelling. The patient expressed a desire for further testing or referral for the condition. Pertinent negatives include no report of throat swelling or major allergic reactions. Chief Complaint: Eye Problem Time Seen by MD: 11:20 Primary Care Provider: UNKNOWN Reviewed Notes: Nurses Notes, Medications, Allergies Allergies: Coded Allergies: NO KNOWN ALLERGIES (Unverified , 09/20/21) Home Meds Active Scripts Methylprednisolone (Medrol Dosepak) 4 Mg Chau, 4 MG PO UD for 7 Days, #21 TAB 0 Refills UAD Prov:KAYCE MORRISON APPLICATIONS DEVELOPMENT ANALYST 09/12/25 Famotidine (PEPCID TABLET) 20 Mg Tb, 1 TAB PO BID for 15 Days, #30 TAB 5 Refills Prov:KENNEDY MARTÍNEZ 05/18/25 Methylprednisolone (Medrol Dosepak) 4 Mg Chau, 4 MG PO UD for 6 Days, #21 TAB UAD Prov:KENNEDY MARTÍNEZ 05/18/25 Diphenhydramine Hcl (Benadryl Allergy) 25 Mg Cap, 1 CAP PO QPM PRN for 30 Days, #30 CAP 1 Refill Prov:KENNEDY MARTÍNEZ 05/18/25 Epinephrine (Anaphylaxis) (Auvi-Q) 0.1 Mg/0.1 Ml Inj, 0.1 MG IJ O PRN for 1 Day, #5 INJ Prov:KENNEDY MARTÍNEZ 05/18/25 Diphenhydramine Hcl (Benadryl Allergy) 25 Mg Cap, 1 CAP PO Q8HP PRN, #20 CAP 0 Refills Prov:SHWETA COTTO PAC 03/19/25 Reported Medications Amlodipine Besylate (Amlodipine Besylate) 5 Mg Tab, 1 TAB PO DAILY 05/17/25 Information Source: Patient Mode of Arrival: Ambulatory Severity: Mild Rash: None SOB: None Difficulty swallowing: None Pruritus: None Timing: Hours Duration: Since onset, Hours Prehospital treatment: None Location: Eyes Exposed to: Unknown Developed: Other (swelling) Modyifying Factors: None Associated Sign and Symptoms: None Past Medical History PAST MEDICAL HISTORY: Denies Surgical History: Denies all surgeries Family History Family History: Reviewed,noncontributory to illness, Unknown Social History Smoker: Non-Smoker Alcohol: Denies ETOH Use Drugs: Denies Drug Use Lives In: Home Constitutional: denies: chills, diaphoresis, fatigue, fever, malaise, sweats, weakness, others EENTM: reports: others (eye lid swelling); denies: blurred vision, double vision, ear bleeding, ear discharge, ear drainage, ear pain, ear ringing, eye pain, eye redness, hearing loss, mouth pain, mouth swelling, nasal discharge, nose bleeding, nose congestion, nose pain, photophobia, tearing, throat pain, throat swelling, voice changes Respiratory: denies: cough, hemoptysis, orthopnea, SOB at rest, shortness of breath, SOB with excertion, stridor, wheezing, others Cardiovascular: denies: chest pain, dizzy spells, diaphoresis, Dyspnea on exertion, edema, irregular heart beat, left arm pain, lightheadedness, palpitations, PND, syncope, others Gastrointestinal: denies: abdomen distended, abdominal pain, blood streaked bowels, constipated, diarrhea, dysphagia, difficulty swallowing, hematemesis, melena, nausea, poor appetite, poor fluid intake, rectal bleeding, rectal pain, vomiting, others Genitourinary: denies: burning, dysuria, flank pain, frequency, hematuria, incontinence, penile discharge, penile sore, pain, testicle pain, testicle swelling, urgency, others Neurological: denies: dizziness, fainting, headache, left sided numbness, left sided weakness, numbness, paresthesia, pre-existing deficit, right sided numbness, right sided weakness, seizure, speech problems, tingling, tremors, weakness, others Musculoskeletal: denies: back pain, gout, joint pain, joint swelling, muscle pain, muscle stiffness, neck pain, others Integumetry: denies: bruises, change in color, change in hair/nails, dryness, laceration, lesions, lumps, rash, wounds, others Allergic/Immunocompromised: denies: Difficulty Healing, Frequent Infections, Hives, Itching, others Hematologic/Lymphatic: denies: anemia, blood clots, easy bleeding, easy bruising, swollen glands, others Endocrine: denies: excessive hunger, excessive sweating, excessive thirst, excessive urination, flushing, intolerance to cold, intolerance to heat, unexplained weight gain, unexplained weight loss, others Psychiatric: denies: anxiety, bipolar disorder, depression, hopeless, panic disorder, schizophrenia, sleepless, suicidal, others All Other Systems: Reviewed and Negative Physical Exam Exam Comments General Appearance: Mild swelling of the right eye observed, no orbital swelling, redness, or severe swelling noted. Respiratory: Lungs sounded clear upon examination. General Appearance: No Apparent Distress, Normal HEENT: Normal ENT Inspection, Pharynx Normal, TMs Normal Neck: Full Range of Motion, Non-Tender, Normal, Normal Inspection Respiratory: Chest Non-Tender, Lungs Clear, No Accessory Muscle Use, No Respiratory Distress, Normal Breath Sounds Cardiovascular: No Edema, No JVD, No Murmur, No Gallop, Normal Peripheral Pulses, Regular Rate/Rhythm Breast Exam: Deferred Gastrointestinal: No Organomegaly, Non Tender, No Pulsatile Mass, Normal Bowel Sounds, Soft Genitalia: Deferred Pelvic: Deferred Rectal: Deferred Extremities: No calf tenderness, Normal capillary refill, Normal inspection, Normal range of motion, Non-tender, No pedal edema Musculoskeletal : Apperance: Normal Neurologic: Alert, manager operational II-XII nml as Tested, No Motor Deficits, Normal Affect, Normal Mood, No Sensory Deficits Cerebellar Function: Normal Reflexes: Normal Skin: Dry, Normal Color, Warm Lymphatic: No Adenopathy Was a procedure done? Was a procedure done?: No Differential diagnosis (all) Differential Diagnosis: Other X-Ray, Labs, Meds, VS Vital Signs Date Time Temp Pulse Resp B/P (MAP) Pulse Ox O2 Delivery O2 Flow Rate FiO2 09/12/25 12:31 98.2 78 17 136/89 (105) 97 98.2 09/12/25 12:31 78 17 97 Room Air 09/12/25 11:09 98.3 88 90 165/100 98 98.3 X-Ray, Labs, Meds, VS Comment Patient arrives alert and oriented, ABC's intact, afebrile, vital signs stable, saturating well in room air The patient presented with recurrent allergic reactions causing mild swelling of the eyes. The patient has a history of allergy testing with no significant findings. The mild swelling observed could be attributed to an allergic reaction, possibly idiopathic, as no specific allergens were identified. The effectiveness of Benadryl suggests a histamine-mediated reaction. There has been no need for EpiPen use, indicating that the reactions have not progressed to anaphylaxis. PLAN: Prescribed Medrol dose pack (steroid pack) for seven days, advised to continue Benadryl as needed every six to eight hours. - Educated on the continued use of Benadryl for managing symptoms. - Advised to call and schedule a follow-up appointment with the buffer chrome. - Prescription sent to [facility] for the Medrol dose pack. Additional MDM Review of External, Non-ED records: External records reviewed. Discussion with independent historian (EMS, family) history obtained from the patient/parents (if applicable) at bedside Chronic conditions affecting care: None Social determinants of health affecting care: None Consideration of admission (observation or admission): I considered escalation of care to admission for this patient, however given the reassuring workup, the patient is safe for outpatient management. Time of 1ST Reevaluation: 11:50 Reevaluation 1ST: Unchanged Patient Education/Counseling: Diagnosis, Treatment, Prognosis Family Education/Counseling: No Family Present SEPSIS Sepsis Screen Date sepsis recognized/suspect: Sep 12, 2025 Time Sepsis recognized/suspect: 1109 Recent Procedure: No On Antibiotic Therapy: No Respiratory Rate >20: No Heart Rate >90: No Temp<36 C (96.8 F) or >38.3 C: No SBP <90 or MAP <65 mmHG: No New Acute Mental Status Change: No Is the patient on CPAP, BIPAP,: No Vital Signs Date Time Temp Pulse Resp B/P (MAP) Pulse Ox O2 Delivery O2 Flow Rate FiO2 09/12/25 12:31 98.2 78 17 136/89 (105) 97 98.2 09/12/25 12:31 78 17 97 Room Air 09/12/25 11:09 98.3 88 90 165/100 98 98.3 Departure 1 Departure Time of Disposition: 12:01 Impression: Primary Impression: Allergic reaction Qualified Codes: T78.40XA - Allergy, unspecified, initial encounter Disposition: 01 HOME / SELF CARE / HOMELESS Condition: Stable e-Prescriptions Methylprednisolone (Medrol Dosepak) 4 Mg Chau 4 MG PO UD for 7 Days, #21 TAB 0 Refills UAD Prov: KAYCE MORRISON NP 09/12/25 Discharged With: Self Critical Care Note Critical Care Time?: No Stability Stability form required: No I personally scribed for KAYCE MORRISON NP ([email or web address]) on 09/12/25 at 12:11. Electronically submitted by Aneesh Wiggins ([email or web address]). KAYCE MORRISON APPLICATIONS DEVELOPMENT ANALYST Sep 12, 2025 12:03
[2025-09-12 12:31] VITALS: BP 136/89; PULSE 78; RESP 17; TEMP 98.2; O2SAT 97
== END 2025-09-12 12:32 | disposition home or self-care (01) ==
LOC: ER 11:07
DX: T78.40XA Allergy, unspecified, initial encounter (principal); Z79.899 Other long term (current) drug therapy; X58.XXXA Exposure to other specified factors, initial encounter